=== PATIENT | male | born 1985 | race Caucasian/White ===

== ENCOUNTER 2016-09-24 20:56 | Emergency (ER) | payer BC ==
[2016-09-24 21:27] VITALS: BP 140/77; PULSE 66; RESP 18; TEMP 100.2
[2016-09-24] MEDS ORDERED: DIPH,PERTUS(ACELL)TETVAC-LF 0.5 ML VIAL IM ONE (21:33)
--- NOTE | 2016-09-24 22:11 | ED ---
Wound/Laceration HPI - General Source: patient Mode of arrival: ambulatory Limitations: no limitations <Aide Olivas - Last Filed: 09/24/16 22:38> <Hermilo Walden - Last Filed: 09/27/16 13:34> - General Chief Complaint: Wound/Laceration Stated Complaint: Fish Hook/ Thumb Time Seen by Provider: 09/24/16 21:28 - History of Present Illness Initial Comments: 31-year-old male patient presented to emergency department today for evaluation after getting a fishhook stuck in the palmar aspect of the left thumb. Patient states this occurred about an hour ago. Patient states he did have to cut the hook down in order to put a shirt on. Patient states he has minimal pain to the site. Patient denies any numbness or tingling to the finger. Patient denies any range of motion limitations. He is unsure when his last tetanus shot was. Denies any other physical symptoms or injuries. (Aide Olivas) - Related Data Home Medications Medication Instructions Recorded Confirmed No Known Home Medications [No 09/24/16 09/24/16 Known Home Medications] Allergies Allergy/AdvReac Type Severity Reaction Status Date / Time No Known Allergies Allergy Verified 11/19/14 18:22 Review of Systems ROS Other: All systems not noted in ROS Statement are negative. <Aide Olivas - Last Filed: 09/24/16 22:38> ROS Other: All systems not noted in ROS Statement are negative. <Hermilo Walden - Last Filed: 09/27/16 13:34> ROS Statement: Those systems with pertinent positive or pertinent negative responses have been documented in the HPI. Past Medical History Past Medical History: No Reported History History of Any Multi-Drug Resistant Organisms: None Reported Past Surgical History: Adenoidectomy, Tonsillectomy Past Psychological History: No Psychological Hx Reported Smoking Status: Never smoker Past Alcohol Use History: Occasional Past Drug Use History: None Reported <Aide Olivas - Last Filed: 09/24/16 22:38> General Exam Limitations: no limitations General appearance: alert, in no apparent distress Head exam: Present: atraumatic, normocephalic, normal inspection Respiratory exam: Present: normal lung sounds bilaterally. Absent: respiratory distress, wheezes, rales, rhonchi, stridor Cardiovascular Exam: Present: regular rate, normal rhythm, normal heart sounds. Absent: systolic murmur, diastolic murmur, rubs, gallop, clicks Extremities exam: Present: full ROM, normal capillary refill, other (Fish hook embedded into the palmar aspect of the left thumb. Full range of motion without limitations. Cap refill less than three seconds. ). Absent: normal inspection, tenderness Neurological exam: Present: alert, oriented X3, CN II-XII intact Psychiatric exam: Present: normal affect, normal mood Skin exam: Present: warm, dry, intact, normal color. Absent: rash <Aide Olivas - Last Filed: 09/24/16 22:38> Medical Decision Making <Aide Olivas - Last Filed: 09/24/16 22:38> <Hermilo Walden - Last Filed: 09/27/16 13:34> - Medical Decision Making 31-year-old male patient presented for fishhook removal from left thumb. Left thumb was anesthetized, small incision made with a 11 blade scalpel, and a fishhook pullback Dr. Walden and azalea assist. Patient tolerated procedure with no complications. Patient did soak hand afterwards and iodine and water solution. Bacitracin applied and wound covered. The patient be discharged home to follow-up with his primary care physician for recheck in 1-2 days. Patient started to return immediately for any new, worsening, or concerning symptoms. Patient verbalized understanding and agreed with this plan. (Aide Olivas) I saw this patient in conjunction with the physician diploma medical assistant. I performed independent history and physical exam. Agree with case management. I did perform fishhook removal for this patient myself. 1% lidocaine without epinephrine injected at the puncture site. Small incision made along the body of the hook to release the skin tension and then it was backed out by myself using the mosquito clamp. Patient tolerated procedure well without complication. (Hermilo Walden) Disposition Time of Disposition: 22:10 <Aide Olivas - Last Filed: 09/24/16 22:38> <Hermilo Walden - Last Filed: 09/27/16 13:34> Clinical Impression: Fish hook injury of finger of left hand Disposition: HOME SELF-CARE Condition: Good Instructions: Puncture Wound (ED) Additional Instructions: Keep area clean and dry. Apply antibiotic ointment. Follow-up for reevaluation with her primary care doctor in 1-2 days. Return immediately for any new, worsening, or concerning symptoms. Referrals: None,Stated [Primary Care Provider] - 1-2 days
== END 2016-09-24 22:25 | disposition home or self-care (01) ==
LOC: EC 20:56
DX: S60.352A Superficial foreign body of left thumb, initial encounter (principal); Z23 Encounter for immunization; W45.8XXA Other foreign body or object entering through skin, initial encounter
CPT/HCPCS: 10120; 90471; 90715; 99282